=== PATIENT | female | born 1985 | race American Indian/Alaskan Native ===

== ENCOUNTER 2021-06-23 14:18 | Emergency (ER) | payer OTHER ==
[2021-06-23] MEDS ORDERED: MECLIZINE 25 MG TAB PO ONE (18:39)
[2021-06-23] MEDS ORDERED: ONDANSETRON 4 MG/2 ML INJ IV ONE (18:39)
[2021-06-23] MEDS ORDERED: SODIUM CHLORIDE 0.9% 1000 ML 1,000 ML IV ONE (18:39)
--- NOTE | 2021-06-23 18:39 | Emergency Department Report ---
ED Dizziness HPI - General Chief Complaint: Dizziness Stated Complaint: DIZZY Time Seen by Provider: 06/23/21 18:38 Source: EMS Mode of arrival: Ambulatory Limitations: No Limitations - History of Present Illness Initial Comments: 36-year-old female who denies any significant past medical history presents to the ER today with complaints of dizziness. Patient states that she was sleeping this morning when she suddenly woke up because she felt like she was falling off the bed. She states that when she woke up she felt dizzy and felt like the room was spinning. She states that this dizziness had continued throughout the day and was getting worse. She states that it worse with positions. It also seems sometimes she feels like her head is spinning. She reports associated nausea but no vomiting. She denies any chest pain, headache, abdominal pain or any other areas of pain. She has not had any recent URI symptoms. She is currently on her menstrual cycle. She does admit that she has a history of heavy menstrual cycle. She denies any known history of anemia. She denies any shortness of breath, lower extremity swelling or calf pain, speech changes, vision changes, focal weakness, syncope, falls or any additional symptoms. MD Complaint: dizziness -: This morning Timing: awoke with symptoms Description: sense of movement, "room spinning" History of Same: No History of Trauma: No Severity: moderate, severe Improves With: remaining still Worsens With: movement, position Associated Symptoms: other (NAUSEA) - Related Data Previous Rx's Medication Instructions Recorded Last Taken Type Meclizine [Antivert] 25 mg PO TID PRN #30 06/23/21 Unknown Rx Ondansetron [Zofran Odt] 4 mg PO Q8HR #15 tab.rapdis 06/23/21 Unknown Rx Allergies Allergy/AdvReac Type Severity Reaction Status Date / Time No Known Allergies Allergy Verified 06/23/21 14:58 ED Review of Systems ROS: Stated complaint: DIZZY Other details as noted in HPI Comment: All other systems reviewed and negative Constitutional: denies: chills, fever Eyes: denies: eye pain, eye discharge, vision change ENT: denies: ear pain, throat pain, dental pain, hearing loss, epistaxis, congestion Respiratory: denies: cough, orthopnea, shortness of breath, SOB with exertion, SOB at rest, wheezing Cardiovascular: denies: chest pain, palpitations, dyspnea on exertion, edema, syncope, paroxysmal nocturnal dyspnea Gastrointestinal: nausea. denies: vomiting, diarrhea, constipation, hematemesis, melena, hematochezia Genitourinary: denies: urgency, dysuria, frequency, hematuria, discharge, abnormal menses, dyspareunia Musculoskeletal: denies: back pain, joint swelling, arthralgia Skin: denies: rash, lesions, change in color, change in hair/nails, pruritus Neurological: abnormal gait, vertigo. denies: headache, weakness, numbness, paresthesias, confusion Psychiatric: denies: anxiety, depression, auditory hallucinations, visual hallucinations, homicidal thoughts, suicidal thoughts Hematological/Lymphatic: denies: easy bleeding, easy bruising, swollen glands ED Past Medical Hx - Past Medical History Previous Medical History?: No - Medications Home Medications: Home Medications Medication Instructions Recorded Confirmed Last Taken Type Meclizine [Antivert] 25 mg PO TID PRN #30 06/23/21 Unknown Rx Ondansetron [Zofran Odt] 4 mg PO Q8HR #15 tab.rapdis 06/23/21 Unknown Rx ED Physical Exam - General Limitations: No Limitations General appearance: alert, in no apparent distress - Head Head exam: Present: atraumatic, normocephalic, normal inspection - Eye Eye exam: Present: normal appearance, PERRL, EOMI Pupils: Present: normal accommodation - ENT ENT exam: Present: normal exam, mucous membranes moist - Neck Neck exam: Present: normal inspection, full ROM. Absent: meningismus - Respiratory Respiratory exam: Present: normal lung sounds bilaterally. Absent: respiratory distress, wheezes, rales, rhonchi, stridor - Cardiovascular Cardiovascular Exam: Present: regular rate, normal rhythm, normal heart sounds - GI/Abdominal GI/Abdominal exam: Present: soft. Absent: distended, tenderness, guarding, rebound - Extremities Exam Extremities exam: Present: normal inspection, full ROM. Absent: calf tenderness - Back Exam Back exam: Present: normal inspection, full ROM - Neurological Exam Neurological exam: Present: alert, oriented X3, CN II-XII intact, normal gait. Absent: motor sensory deficit - Expanded Neurological Exam Expanded Patient oriented to: Present: person, place, time Speech: Present: fluid speech Cranial nerves: EOM's Intact: Normal, Gag Reflex: Normal, Tongue Deviation: Normal, Nystagmus: Normal, Facial Sensation: Normal, Facial Palsy with Forehead Movement: Normal, Facial Palsy without Forehead Movement: Normal Cerebellar function: Finger to Nose: Normal, Heel to [place]: Normal, Romberg: Normal Upper motor neuron: Babinski Sign: Normal Sensory exam: Upper Extremity Light Touch: Normal, Upper Extremity Temperature: Normal, Lower Extremity Light Touch: Normal, Lower Extremity Temperature: Normal Motor strength exam: RUE: 5, LUE: 5, RLE: 5, LLE: 5 Best Eye Response ([place]): (4) open spontaneously Best Motor Response ([place]): (6) obeys commands Best Verbal Response ([place]): (5) oriented [place] Total: 15 - Psychiatric Psychiatric exam: Present: normal affect, normal mood - Skin Skin exam: Present: intact ED Course Vital Signs 06/23/21 14:57 Temperature 98.5 F Pulse Rate 79 Respiratory 16 Rate Blood Pressure 126/88 [Right] O2 Sat by Pulse 98 Oximetry ED Medical Decision Making - Lab Data Result diagrams: 06/23/21 18:49 06/23/21 18:49 - EKG Data EKG shows normal: sinus rhythm Rate: normal (67) - EKG Data Interpretation: normal EKG - Medical Decision Making All labs reviewed, and unremarkable. EKG showed normal sinus rhythm without any STEMI, or significant dysrhythmias. The patient is resting comfortably and feels better, is alert, talkative, interactive and in no distress. The patient is neurologically intact, has a normal mental status and is ambulatory in the ER. The history, exam, diagnostic testing and the patient's current condition does not suggest meningitis, stroke, sepsis, subarachnoid hemorrhage, intracranial bleed, encephalitis, ACS/NH, PE or other significant pathology that would warrant further testing, continued ED treatment, admission, neurological consultation or other specialist evaluation at this point. Her vital signs have been stable. Discussed all results with patient. Symptoms could be related to be benign positional vertigo. She will be given prescription for meclizine and Zofran. I did recom mend that she follow-up with her primary care doctor next week for referral to neurology if needed. Patient expressed understanding and agree with plan. The patient condition is stable and appropriate for discharge. The patient will pursue further outpatient evaluation with the primary care physician or other designated or consulting physician as indicated in the discharge instructions. Critical care attestation.: If time is entered above; I have spent that time in minutes in the direct care of this critically ill patient, excluding procedure time. ED Disposition Clinical Impression: Dizziness Disposition: 01 HOME / SELF CARE / HOMELESS Is pt being admited?: No Does the pt Need Aspirin: No Condition: Stable Instructions: Vertigo, [id number], Dizziness, [id number] Additional Instructions: Recommend that you take the meclizine, as prescribed to help with any dizziness. Take Zofran help with any nausea. Continue to increase your fluid intake. Recommend close follow-up with your primary care doctor and/or neurologist especially if symptoms persist. Return to the ER if your symptoms changes or worsens in any way. Prescriptions: Meclizine [Antivert] 25 mg PO TID PRN #30 PRN Reason: dizzy/vertigo Ondansetron [Zofran Odt] 4 mg PO Q8HR #15 tab.rapdis Referrals: FRANCISCO GORMAN MD [Staff Physician] - 3-5 Days [facility] [Provider Group] - 3-5 Days Forms: Work/School Release Form(ED) Time of Disposition: 20:41
[2021-06-23 19:15] LABS: Bilirubin,Urine NEG (Negative); Blood,Urine MOD (Negative); Color,Urine Straw (Yellow); Protein,Urine <15 mg/dL mg/dL (Negative); Urobilinogen,Urine < 2.0 mg/dL (<2.0)
[2021-06-23 19:33] LABS: Alanine Aminotransferase 8 units/L (7-56); Albumin 4.4 g/dL (3.9-5); BUN/Creatinine Ratio 11; Blood Urea Nitrogen 9 mg/dL (7-17); Calcium 10.1 mg/dL (8.4-10.2); Hemolysis Index 16
[2021-06-23 20:17] LABS: Basophils # (Auto) 0.1 K/mm3 (0.0-0.1); Eosinophils % (Auto) 0.6 % (0.0-4.3); Hematocrit 33.2 % (30.3-42.9); Hemoglobin 10.3 gm/dl (10.1-14.3); Lymphocytes % (Auto) 27.9 % (13.4-35.0); Mean Corpuscular HGB Conc 31 % (30-34); Mean Corpuscular Volume 75 fl (79-97); Monocytes # (Auto) 0.3 K/mm3 (0.0-0.8); Monocytes % (Auto) 4.3 % (0.0-7.3); Platelet Count 513 K/mm3 (140-440); Red Blood Count 4.45 M/mm3 (3.65-5.03)
[2021-06-23 21:36] VITALS: BP 117/78
--- NOTE | 2021-06-24 09:19 | Electrocardiograph Report ---
[facility] Test Date: 2021-06-23 Test Time: 19:21:04 Pat Name: MALIK CERDA Department: Room: Gender: F Director Of Billing: JE : 1985 Requested By: YAKOV MANCINI Order Number: [id number] Reading MD: Des Hernandez Measurements Intervals [place] Rate: 67 P: 52 NM: 162 QRS: 70 QRSD: 99 T: 47 QT: 406 QTc: 430 Interpretive Statements Sinus rhythm No previous ECG available for comparison Electronically Signed On 06-24-2021 9:19:19 EST by Des Hernandez
== END 2021-06-23 21:22 | disposition home or self-care (01) ==
LOC: ED 14:18
DX: R42 Dizziness and giddiness (principal)
CPT/HCPCS: 36415; 80053; 81001; 84703; 85025; 93005; 96361; 96374; 99284; J2405; J7030; Q0162